=== PATIENT | male | born 1935 | race Caucasian/White ===

== ENCOUNTER 2020-11-11 22:34 | Emergency (ER) | payer MEDICARE, OTHER ==
[~2020-11-11] VITALS: Ht 185.4 cm; Wt 86.2 kg
[~2020-11-11 22:34] MED LIST: ASPI81CH PO; CLOP75 PO
[2020-11-11] MEDS ORDERED: PAROEX473 ML MM (22:54)
[2020-11-11] MEDS ORDERED: AMLO10 PO (22:54)
[2020-11-11] MEDS ORDERED: ATOR80 PO (22:54)
== END 2020-11-12 00:30 | disposition home or self-care (01) ==
LOC: ER 22:34
DX: K06.8 Other specified disorders of gingiva and edentulous alveolar ridge (principal); Z79.899 Other long term (current) drug therapy
CPT/HCPCS: 99282